=== PATIENT | female | born 1975 | race Hispanic/Latino ===

== ENCOUNTER 2016-12-20 13:35 | Emergency (ER) | payer OTHER ==
[2016-12-20 13:48] VITALS: BMI 34.7
[2016-12-20] MEDS ORDERED: guaiFENesin 200 mg/10 ml Syrup UD PO STA (13:51)
[2016-12-20] MEDS ORDERED: Alum-Mag Hydrox-Simethicone Susp (30 mL) PO STA (13:51)
[2016-12-20 13:52] VITALS: TEMP 98.2
[2016-12-20] MEDS ORDERED: Levalbuterol 1.25 MG/3 ML Inhal Soln UD IH STA ×2 (13:54)
[2016-12-20] MEDS ORDERED: Ipratropium 0.02% Inhal Soln (0.5 mg/2.5 ml) UD IH STA (13:54)
--- NOTE | 2016-12-20 14:32 | ED PDOC ---
Arrival/HPI - General Chief Complaint: Shortness Of Breath Time Seen by Provider: 12/20/16 13:37 Historian: Patient - History of Present Illness Narrative History of Present Illness (Text): 12/20/16 13:47 Jennifer Goodman is a a 41 year old female smoker, whose past medical history includes Migraines and Asthma, who presents to the ED, complaining of chest tightness and difficulty breathing since yesterday. Patient reports upon symptoms onset she was cleaning out a old roommates room. Patient denies any fever, shortness of breath, nausea, vomiting, abdominal pain, urinary/bowel changes, headache, vision changes or other associated symptoms. PMD: None Time/Duration: 24 hours Symptom Onset: Gradual Symptom Course: Unchanged Activities at Onset: Light Context: Home Past Medical History - Provider Review Nursing Documentation Reviewed: Yes - Past History Past History: Non-Contributing - Infectious Disease Hx of Infectious Diseases: None - Tetanus Immunization Tetanus Immunization: Up to Date - Cardiac Hx Cardiac Disorders: Yes Hx Heart Murmur: Yes - Pulmonary Hx Respiratory Disorders: Yes Hx Asthma: Yes - Neurological Hx Neurological Disorder: Yes Hx Migraine: Yes - HEENT Hx HEENT Disorder: No - Renal Hx Renal Disorder: No - Endocrine/Metabolic Hx Endocrine Disorders: No - Hematological/Oncological Hx Blood Disorders: No - Integumentary Hx Dermatological Disorder: Yes Other/Comment: varicose veins - Musculoskeletal/Rheumatological Hx Musculoskeletal Disorders: No - Gastrointestinal Hx Gastrointestinal Disorders: Yes Hx Gastrointestinal Ulcer: Yes - Genitourinary/Gynecological Hx Genitourinary Disorders: No - Psychiatric Hx Psychophysiologic Disorder: Yes Hx Anxiety: Yes Hx Depression: Yes Hx Substance Use: No - Past Surgical History Past Surgical History: No Previous - Anesthesia Hx Anesthesia: No Hx Anesthesia Reactions: No Hx Malignant Hyperthermia: No - Suicidal Assessment Feels Threatened In Home Enviroment: No Family/Social History - Physician Review Nursing Documentation Reviewed: Yes Family/Social History: No Known Family HX Smoking Status: Light Smoker < 10 Cigarettes Daily Hx Alcohol Use: No Hx Substance Use: No Hx Substance Use Treatment: No Allergies/Home Meds Allergies/Adverse Reactions: Allergies No Known Allergies Allergy (Verified 12/20/16 13:48) Home Medications: Home Meds Medication Instructions Recorded Confirmed Ibuprofen [Advil] 2 cap PO DAILY 12/20/16 12/20/16 Review of Systems - Physician Review All systems were reviewed & negative as marked: Yes - Review of Systems Constitutional: Normal. absent: Fevers Eyes: Normal ENT: Normal Respiratory: Other (Difficulty Breathing) Cardiovascular: Chest Pain (Chest Tightness), Other Gastrointestinal: Nausea, Vomiting. absent: Abdominal Pain, Constipation, Diarrhea Genitourinary Female: Normal Musculoskeletal: Normal. absent: Back Pain, Neck Pain Skin: Normal Neurological: Normal. absent: Headache, Dizziness Endocrine: Normal Hemo/Lymphatic: Normal Psychiatric: Normal Physical Exam Vital Signs Reviewed: Yes Vital Signs Temp Pulse Resp BP Pulse Ox 12/20/16 16:04 86 16 132/82 98 12/20/16 14:00 11 L 12/20/16 13:49 98.2 F 85 15 97 Temperature: Afebrile Blood Pressure: Normal Pulse: Regular Respiratory Rate: Normal Appearance: Positive for: Well-Appearing, Non-Toxic, Comfortable Pain Distress: None Mental Status: Positive for: Alert and Oriented X 3 - Systems Exam Head: Present: Atraumatic, Normocephalic Pupils: Present: PERRL Conjunctiva: Present: Normal Mouth: Present: Moist Mucous Membranes Pharnyx: Present: Normal. No: ERYTHEMA, EXUDATE Neck: Present: Normal Range of Motion Respiratory/Chest: Present: Decreased Breath Sounds (Slightly Diminished Air Entry), Rhonchi. No: Respiratory Distress, Accessory Muscle Use Cardiovascular: Present: Regular Rate and Rhythm, Normal S1, S2. No: Murmurs Abdomen: Present: Normal Bowel Sounds. No: Tenderness, Distention, Peritoneal Signs Upper Extremity: Present: Normal Inspection. No: Cyanosis, Edema Lower Extremity: Present: Normal Inspection. No: Edema Neurological: Present: GCS=15, CN II-XII Intact, Speech Normal Skin: Present: Warm, Dry, Normal Color. No: Rashes Psychiatric: Present: Alert, Oriented x 3, Normal Insight, Normal Concentration Medical Decision Making ED Course and Treatment: 12/20/16 13:47 Impression: 41 year old female complaining of chest tightness accompanied with nausea and vomiting. Differential Diagnosis include but are not limited to: Asthma Exacerbation vs. Allergic Reaction vs. Atypical PNA Plan: -- Chest X-ray -- Atrovent -- Claritin -- Magnesium -- Xopenex -- Zofran -- Prednisone -- Reassess and disposition Prior Visits: Notes and results from previous visits were reviewed. Patient was last seen in the ED for headache, abdominal pain, and vomiting. Progress Notes: 12/20/16 15:06 Procedure: Chest X-Ray Dictator: JAMES LAND MD Impression: No active pulmonary disease. 12/20/16 16:14 Patient with noted history - given meds as noted. She reports feeling much better with full resolution of symptoms; CXR is negative -will d/c on steroids and albuterol. - Lab Interpretations I have reviewed the lab results: Yes - RAD Interpretation Narrative RAD Interpretations (Text): 12/20/16 15:06 Procedure: Chest X-Ray Dictator: JAMES LAND MD FINDINGS: LUNGS: The lungs are well inflated and clear. PLEURA: No significant pleural effusion identified. No pneumothorax apparent. CARDIOVASCULAR: Normal. OSSEOUS STRUCTURES: No significant abnormalities. VISUALIZED UPPER ABDOMEN: Normal. OTHER FINDINGS: None. Impression: No active pulmonary disease. Radiology Orders: 12/20/16 13:51 CHEST TWO VIEWS (PA/LAT) [RAD] Stat Form Layer: Radiologist - Medication Orders Current Medication Orders: Discontinued Medications Al Hydrox/Mg Hydrox/Simethicone (Maalox Plus 30 Ml) 30 ml PO STAT STA Stop: 12/20/16 13:52 Last Admin: 12/20/16 14:05 Dose: 30 ML Guaifenesin (Robitussin) 400 mg PO ONCE STA Stop: 12/20/16 13:52 Last Admin: 12/20/16 14:05 Dose: 400 MG Ipratropium Mobile (Atrovent) 0.5 mg IH STAT STA Stop: 12/20/16 13:55 Last Admin: 12/20/16 14:06 Dose: 0.5 MG Levalbuterol HCl (Xopenex) 1.25 mg IH STAT STA Stop: 12/20/16 13:55 Last Admin: 12/20/16 14:06 Dose: 1.25 MG Levalbuterol HCl (Xopenex) 1.25 mg IH STAT STA Stop: 12/20/16 13:55 Last Admin: 12/20/16 14:06 Dose: 1.25 MG Loratadine (Claritin) 10 mg PO ONCE STA Stop: 12/20/16 13:51 Last Admin: 12/20/16 14:05 Dose: 10 MG Ondansetron HCl (Zofran Odt) 4 mg PO STAT STA Stop: 12/20/16 13:52 Last Admin: 12/20/16 14:05 Dose: 4 MG Prednisone (Prednisone Tab) 40 mg PO STAT STA Stop: 12/20/16 13:55 Last Admin: 12/20/16 14:05 Dose: 40 MG - Lindae Statement The provider has reviewed the documentation as recorded by the Olivia Amador Provider Attestation: All medical record entries made by the Saundraibida were at my direction and personally dictated by me. I have reviewed the chart and agree that the record accurately reflects my personal performance of the history, physical exam, medical decision making, and the department course for this patient. I have also personally directed, reviewed, and agree with the discharge instructions and disposition. Disposition/Present on Arrival - Present on Arrival Any Indicators Present on Arrival: No History of DVT/PE: No History of Uncontrolled Diabetes: No Urinary Catheter: No History of Decub. Ulcer: No History Surgical Site Infection Following: None - Disposition Have Diagnosis and Disposition been Completed?: Yes Diagnosis: Acute exacerbation of asthma with allergic rhinitis Disposition: HOME/ ROUTINE Disposition Time: 16:10 Patient Plan: Discharge Condition: GOOD Additional Instructions: Take the medications as prescribed. Avoid smoking. Follow up with your primary care doctor or medical clinic. Return to the emergency department if any new concerning symptoms. Prescriptions: Albuterol 0.083% [Albuterol 0.083% Inhal Argenis (2.5 mg/3 ml) UD] 2.5 mg IH Q4H PRN #25 neb PRN Reason: Shortness Of Breath Loratadine [Claritin] 1 tab PO DAILY PRN #30 tab PRN Reason: Allergy Symptoms Albuterol HFA [Ventolin HFA 90 mcg/actuation (8 g)] 2 puff IH Q4H #1 inhaler predniSONE [Prednisone] 2 tab PO DAILY #6 tab Referrals: Scott Denise JD, MD [Primary Care Provider] - Follow up with primary [facility] at [facility] [place] [Outside] - Follow up with primary Forms: WORK NOTE
--- NOTE | 2016-12-20 15:07 | RAD ---
HISTORY: Cough COMPARISON: 06/27/2015 TECHNIQUE: Chest PA and lateral FINDINGS: LUNGS: The lungs are well inflated and clear. PLEURA: No significant pleural effusion identified. No pneumothorax apparent. CARDIOVASCULAR: Normal. OSSEOUS STRUCTURES: No significant abnormalities. VISUALIZED UPPER ABDOMEN: Normal. OTHER FINDINGS: None. IMPRESSION: No active pulmonary disease.
[2016-12-20 16:05] VITALS: BP 132/82; PULSE 86; RESP 16; O2SAT 98
--- NOTE | 2016-12-21 18:31 | CARD ---
APPROVED REPORT EKG Measurement Heart [id number] <Conclusion> Normal sinus rhythm Normal ECG
== END 2016-12-20 16:29 | disposition home or self-care (01) ==
LOC: ED 13:35
DX: J45.901 Unspecified asthma with (acute) exacerbation (principal); J30.9 Allergic rhinitis, unspecified; Z72.0 Tobacco use

== ENCOUNTER 2016-12-25 11:44 | Emergency (ER) | payer OTHER ==
[2016-12-25 11:45] VITALS: BMI 34.7
[2016-12-25 11:56] VITALS: BP 132/84; PULSE 77; RESP 18; TEMP 98.4; O2SAT 97
--- NOTE | 2016-12-25 12:27 | ED PDOC ---
Arrival/HPI - General Historian: Patient - History of Present Illness Time/Duration: < week, Other (see HPI) Context: Home - General Chief Complaint: ENT Problem Time Seen by Provider: 12/25/16 12:07 - History of Present Illness Narrative History of Present Illness (Text): 12/25/16 12:08 This 41 yo female with pmh asthma, smoker, presents to this ED c/o epistaxis x 2 hours ago. Patient upon enetring ED department, epistaxis has improved. Patient noted she was seen in this ED last week. Patient took Prednisone, but she continue smoking. Patient still feels congested, and she is requesting ABX. Denies CP, TORREZ, rash, sick contact, CP, hemoptysis, dizziness, leg swelling , calf pain, or abnormal gait. PERC negative for PE (Stephanie Singletary) Past Medical History - Provider Review Nursing Documentation Reviewed: Yes - Past History Past History: Non-Contributing - Infectious Disease Hx of Infectious Diseases: None - Tetanus Immunization Tetanus Immunization: Up to Date - Cardiac Hx Cardiac Disorders: Yes Hx Heart Murmur: Yes - Pulmonary Hx Respiratory Disorders: Yes Hx Asthma: Yes - Neurological Hx Neurological Disorder: Yes Hx Migraine: Yes - HEENT Hx HEENT Disorder: No - Renal Hx Renal Disorder: No - Endocrine/Metabolic Hx Endocrine Disorders: No - Hematological/Oncological Hx Blood Disorders: No - Integumentary Hx Dermatological Disorder: Yes Other/Comment: varicose veins - Musculoskeletal/Rheumatological Hx Musculoskeletal Disorders: No - Gastrointestinal Hx Gastrointestinal Disorders: Yes Hx Gastrointestinal Ulcer: Yes - Genitourinary/Gynecological Hx Genitourinary Disorders: No - Psychiatric Hx Psychophysiologic Disorder: Yes Hx Anxiety: Yes Hx Depression: Yes Hx Substance Use: No - Past Surgical History Past Surgical History: No Previous - Anesthesia Hx Anesthesia: No Hx Anesthesia Reactions: No Hx Malignant Hyperthermia: No - Suicidal Assessment Feels Threatened In Home Enviroment: No Family/Social History - Physician Review Nursing Documentation Reviewed: Yes Family/Social History: No Known Family HX Smoking Status: Light Smoker < 10 Cigarettes Daily Hx Alcohol Use: Yes Frequency of alcohol use: Socially Hx Substance Use: No Hx Substance Use Treatment: No Allergies/Home Meds Allergies/Adverse Reactions: Allergies No Known Allergies Allergy (Verified 12/25/16 11:56) Home Medications: Home Meds Medication Instructions Recorded Confirmed Ibuprofen [Advil] 2 cap PO DAILY 12/20/16 12/25/16 Review of Systems - Review of Systems Constitutional: Normal. absent: Fatigue, Weight Change, Fevers Eyes: Normal ENT: Rhinorrhea, Epistaxis. absent: Sinus Congestion Respiratory: Cough. absent: SOB, Sputum, Wheezing Cardiovascular: Normal. absent: Chest Pain, Palpitations Gastrointestinal: Normal. absent: Abdominal Pain, Diarrhea, Nausea Genitourinary Female: Normal. absent: Dysuria, Frequency, Hematuria, Vaginal Bleeding, Vaginal Discharge Musculoskeletal: Normal. absent: Back Pain Skin: Normal Neurological: Normal Endocrine: Normal Hemo/Lymphatic: Normal Psychiatric: Normal Physical Exam Temperature: Afebrile Blood Pressure: Normal Pulse: Regular Respiratory Rate: Normal Appearance: Positive for: Well-Appearing, Non-Toxic, Comfortable Pain Distress: None Mental Status: Positive for: Alert and Oriented X 3 - Systems Exam Head: Present: Atraumatic, Normocephalic Pupils: Present: PERRL Extroacular Muscles: Present: EOMI Conjunctiva: Present: Normal Mouth: Present: Moist Mucous Membranes, Normal Lips, Normal Tounge. No: Drooling Pharnyx: Present: Normal. No: ERYTHEMA, TONSILS ENLARGED Nose (External): Present: Atraumatic Nose (Internal): Present: Normal Inspection. No: No Active Bleeding, Moist, Edematous, Rhinorrhea, Septal Hematoma, Epistaxis Neck: Present: Normal Range of Motion Respiratory/Chest: Present: Clear to Auscultation, Good Air Exchange. No: Respiratory Distress, Accessory Muscle Use, Wheezes, Decreased Breath Sounds, Rales, Retracting, Rhonchi, Tachypneic Cardiovascular: Present: Regular Rate and Rhythm, Normal S1, S2. No: Murmurs Abdomen: Present: Normal Bowel Sounds. No: Tenderness, Distention, Peritoneal Signs Back: Present: Normal Inspection. No: CVA Tenderness Upper Extremity: Present: Normal Inspection, Normal ROM, Neurovascularly Intact , Capillary Refill < 2s. No: Cyanosis, Edema Lower Extremity: Present: Normal Inspection, Normal ROM, Neurovascularly Intact , Capillary Refill < 2 s. No: Edema, CALF TENDERNESS Neurological: Present: GCS=15, CN II-XII Intact, Speech Normal, Motor Func Grossly Intact, Normal Sensory Function, Normal Cerebellar Funct, Norm Deep Tendon Reflexes, Gait Normal, Memory Normal Skin: Present: Warm, Dry, Normal Color. No: Rashes Psychiatric: Present: Alert, Oriented x 3 Vital Signs Temp Pulse Resp BP Pulse Ox 12/25/16 11:53 98.4 F 77 18 132/84 97 Medical Decision Making Re-evaluation Time: 12:31 Reassessment Condition: Re-examined, Improved ED Course and Treatment: 12/25/16 12:31 Re-evaluation. Patient feels better. Discussed results and plan with patient who expresses understanding. All questions answered and there is agreement with the plan to discharge home with instructions. Patient stable for discharge. Return if symptoms persist or worsen. (Stephanie Singletary) I was available for consultation during PA evaluation. The chart was reviewed by me, and I agree with disposition. The documented history was done by the physician department specialist. The documented physical exam was done by the physician department specialist. The documented procedures were done by the physician department specialist. ( Chandrakant Hoskins) Disposition/Present on Arrival - Present on Arrival Any Indicators Present on Arrival: No History of DVT/PE: No History of Uncontrolled Diabetes: No Urinary Catheter: No History of Decub. Ulcer: No History Surgical Site Infection Following: None - Disposition Have Diagnosis and Disposition been Completed?: Yes Disposition Time: 12:32 Patient Plan: Discharge - Disposition Diagnosis: Epistaxis, Cough, Upper respiratory infection Disposition: HOME/ ROUTINE Discharge Instructions (ExitCare): Upper Respiratory Infection (ED), Acute Cough (ED) Additional Instructions: Call private doctor for follow up visit inj 1-2 days. Take medication as instructed. Return to emergency if symptoms worsen. Prescriptions: Clarithromycin [Biaxin Filmtab] 500 mg PO BID #14 tab Promethazine/Codeine [Codeine/Promethazine 10 MG/5 Ml-6.25 MG/5 Ml] 5 ml PO Q6H PRN #120 ml PRN Reason: Cough Referrals: [facility] [Outside] - Follow up with primary Forms: WORK NOTE
== END 2016-12-25 12:43 | disposition home or self-care (01) ==
LOC: ED 11:44
DX: J06.9 Acute upper respiratory infection, unspecified (principal); R05 Cough; R04.0 Epistaxis; F17.210 Nicotine dependence, cigarettes, uncomplicated